=== PATIENT | female | born 1955 | race Caucasian/White ===

== ENCOUNTER → 2017-11-07 | Outpatient (REF) | payer BC ==
[~2017-11-07] MED LIST: ESTR1PAT66 TD; FLE100 PO; LORA-1456 PO; NITR0.3T6 SL; ONDA4TAB PO; OXYC-865 PO; [UNRECOGNIZED DRUG - OTHER]
[2017-11-07 10:07] LABS: PLATELET COUNT, AUTOMATED 320 K/uL (150-450)
== END ==
LOC: ZZSTITCHES 09:54
PROVIDERS: ATTEND Physician Assistant
DX: R07.9 Chest pain, unspecified (principal)
CPT/HCPCS: 82040; 82247; 82310; 82374; 82435; 82565; 82947; 83735; 84075; 84132; 84155; 84295; 84450; 84460; 84484; 84520; 85025; 85379